=== PATIENT | female | born 1980 | race Caucasian/White ===

== ENCOUNTER 2023-06-09 16:54 | Emergency (ER) | payer SELFPAY ==
[~2023-06-09] VITALS: Ht 165.1 cm; Wt 80.0 kg
[2023-06-09 17:12] VITALS: O2SAT 98
[2023-06-09 21:46] LABS: CLARITY URINE CLOUDY (CLEAR); COLOR URINE YELLOW (YELLOW); KETONES URINE NEGATIVE (NEGATIVE); LEUKOCYTE ESTERASE URINE 1+ (NEGATIVE); NITRITE URINE POSITIVE (NEGATIVE); OCCULT BLOOD URINE 3+ (NEGATIVE); PROTEIN URINE NEGATIVE (NEGATIVE); SPECIFIC GRAVITY URINE 1.044 (1.005-1.030)
[2023-06-09 21:53] LABS: UCG SCREEN NEGATIVE
[2023-06-09] MEDS ORDERED: FLUC150T46 MT (22:32)
[2023-06-09] MEDS ORDERED: NITR-87 MT (22:32)
[2023-06-09 22:39] VITALS: BP 120/68; PULSE 80; RESP 20; TEMP 98.2
[2023-06-09] MEDS ORDERED: METR45CR TP (23:05)
== END 2023-06-09 22:39 | disposition home or self-care (01) ==
LOC: ER 16:54
DX: N39.0 Urinary tract infection, site not specified (principal); E11.9 Type 2 diabetes mellitus without complications
CPT/HCPCS: 81003; 81025; 99283